=== PATIENT | female | born 1985 | race Two or more races ===

== ENCOUNTER 2016-12-05 13:30 | Emergency (ER) | payer SELFPAY ==
[~2016-12-05] VITALS: Ht 172.7 cm; Wt 91.0 kg
[2016-12-05 13:49] VITALS: BP 130/87
[2016-12-05] MEDS ORDERED: AMLO10TA4 PO (13:54)
[2016-12-05] MEDS ORDERED: HYDR25TA PO (13:54)
== END 2016-12-05 22:56 | disposition left against medical advice (07) ==
LOC: ER 22:22
DX: Z53.21 Procedure and treatment not carried out due to patient leaving prior to being seen by health care provider (principal)

== ENCOUNTER 2018-10-15 22:52 | Emergency (ER) | payer SELFPAY ==
[~2018-10-15] VITALS: Ht 172.7 cm; Wt 94.0 kg
[~2018-10-15 22:52] MED LIST: AMLO10TA4 PO; HYDR25TA PO
[2018-10-16] MEDS ORDERED: KETOROLAC 60MG/2ML VIAL IM ONE (00:30)
[2018-10-16 00:59] VITALS: BP 166/113
== END 2018-10-16 02:30 | disposition home or self-care (01) ==
LOC: ER 22:52
DX: S16.1XXA Strain of muscle, fascia and tendon at neck level, initial encounter (principal); S33.5XXA Sprain of ligaments of lumbar spine, initial encounter; F12.10 Cannabis abuse, uncomplicated; J45.909 Unspecified asthma, uncomplicated; I10 Essential (primary) hypertension; Z79.899 Other long term (current) drug therapy; Z88.2 Allergy status to sulfonamides; Z98.890 Other specified postprocedural states; V49.19XA Passenger injured in collision with other motor vehicles in nontraffic accident, initial encounter; Y93.89 Activity, other specified; Y92.89 Other specified places as the place of occurrence of the external cause; Y99.8 Other external cause status
CPT/HCPCS: 81025; 96372; 99283; J1885